=== PATIENT | female | born 2000 | race Two or more races ===

== ENCOUNTER 2024-03-02 13:56 | Outpatient (CLI) | payer OTHER | END 2024-03-02 13:57 | disposition home or self-care (01) | LOC: PRENATAL 13:56 | PROVIDERS: ATTEND Obstetrics & Gynecology Maternal & Fetal Medicine | DX: O35.9XX0 Maternal care for (suspected) fetal abnormality and damage, unspecified, not applicable or unspecified (principal); O35.3XX0 Maternal care for (suspected) damage to fetus from viral disease in mother, not applicable or unspecified; O44.02 Complete placenta previa NOS or without hemorrhage, second trimester; Z3A.19 19 weeks gestation of pregnancy ==

== ENCOUNTER 2024-05-28 08:43 | Outpatient (CLI) | payer OTHER ==
[2024-05-28 08:00] VITALS: BP 107/66
[2024-05-28] MEDS ORDERED: TERBUTALINE SULFATE 1 MG/ML AMPUL SUBCUTANEO ONE (09:00)
[2024-05-28] MEDS ORDERED: RINGERS SOLUTION,LACTATED 1,000 ML IV SCH (09:00)
[2024-05-28 09:21] LABS: URINE APPEARANCE Cloudy; URINE BILIRRUBIN Negative (NEGATIVE); URINE BLOOD Negative; URINE COLOR Yellow; URINE GLUCOSE Negative (NEGATIVE); URINE KETONE Negative (NEGATIVE); URINE LEUKOCYTE Negative; URINE NITRATE Negative; URINE PROTEIN Negative (NEGATIVE)
[2024-05-28 09:22] LABS: HEMATOCRIT 33.5 % (36.0-45.00); HEMOGLOBIN 11.8 g/dL (12.0-15.00); MEAN CELL VOLUME 92.3 fL (80.00-100.00); MEAN CORPUSCULAR HEMOGLOBIN 32.6 pg (27.00-32.0); MEAN CORPUSCULAR HGB CONC 35.3 g/dl (32.0-36.0); PLATELET COUNT 273 K/uL (150-450); RED BLOOD COUNT 3.63 M/uL (4.00-6.00); RED CELL DISTRIBUTION WIDTH 12.9 % (11.5-14.5)
[2024-05-28 09:29] LABS: URINE BACTERIA 522.8 uL (0.0-1933); URINE EPITHELIAL CELLS 14.1 uL (0.0-38.8); URINE WBC 9.7 uL (0.0-23.2)
[2024-05-28 09:38] LABS: URINE CAST 0.15 uL (0.0-1.40); URINE RBC 1.2 uL (0.0-20.8)
[2024-05-28 11:44] VITALS: BP 95/59; O2SAT 98
[2024-05-28 15:22] VITALS: BP 105/67
[2024-05-28 20:00] VITALS: BP 90/54
[2024-05-28 21:59] VITALS: BP 90/54
== END 2024-05-28 22:01 | disposition home or self-care (01) ==
LOC: OBS/DEL 08:43
PROVIDERS: ATTEND Obstetrics & Gynecology
DX: O26.893 Other specified pregnancy related conditions, third trimester (principal); Z3A.31 31 weeks gestation of pregnancy; O26.849 Uterine size-date discrepancy, unspecified trimester; O60.00 Preterm labor without delivery, unspecified trimester

== ENCOUNTER 2024-07-19 05:28 | Inpatient (IN) | payer OTHER ==
[~2024-07-19] VITALS: Ht 154.9 cm; Wt 2.7 kg
[2024-07-19 05:34] VITALS: BP 116/78
[2024-07-19] MEDS ORDERED: PRENATAL TABLE1 EAC1 PO (06:32)
[2024-07-19 06:55] LABS: HEMATOCRIT 37.8 % (36.0-45.00); HEMOGLOBIN 13.5 g/dL (12.0-15.00); MEAN CELL VOLUME 93.6 fL (80.00-100.00); MEAN CORPUSCULAR HEMOGLOBIN 33.3 pg (27.00-32.0); MEAN CORPUSCULAR HGB CONC 35.6 g/dl (32.0-36.0); PLATELET COUNT 253 K/uL (150-450); RED BLOOD COUNT 4.04 M/uL (4.00-6.00); RED CELL DISTRIBUTION WIDTH 14.4 % (11.5-14.5)
[2024-07-19 07:10] LABS: PH,URINE 6.5 (5.0-8.0); URINE APPEARANCE Clear; URINE BILIRRUBIN Negative (NEGATIVE); URINE BLOOD Negative; URINE COLOR Yellow; URINE GLUCOSE Negative (NEGATIVE); URINE LEUKOCYTE Small; URINE NITRATE Negative; URINE PROTEIN Negative (NEGATIVE)
[2024-07-19 07:14] LABS: URINE BACTERIA 2038.9 uL (0.0-1933); URINE EPITHELIAL CELLS 71.3 uL (0.0-38.8); URINE RBC 2.7 uL (0.0-20.8); URINE WBC 116.3 uL (0.0-23.2)
[2024-07-19 07:15] LABS: INR 0.96; PARTIAL THROMBOPLASTIN TIME 27.3 SECONDS (22.0-34.0); PROTHROMBIN TIME 10.5 SECONDS (9.0-11.5)
[2024-07-19 07:27] LABS: URINE CAST 0.58 uL (0.0-1.40); URINE KETONE 40 (NEGATIVE)
[2024-07-19 07:28] LABS: URINE CRYSTALS FEW /HPF
[2024-07-19 07:36] VITALS: BP 118/82
[2024-07-19] MEDS ORDERED: OXYTOCIN 20 UNITS/500ML RL PIGGYBAG IV ONE (10:19)
[2024-07-19] MEDS ORDERED: OXYTOCIN 20 UNITS/500ML RL PIGGYBAG IV SCH (10:30)
[2024-07-19] MEDS ORDERED: OXYTOCIN 500 ML IV SCH (10:45)
[2024-07-19] MEDS ORDERED: PROMETHAZINE HCL 25 MG/ML AMPUL ONE (10:48)
[2024-07-19] MEDS ORDERED: MEPERIDINE HCL/PF 50 MG/ML VIAL IV STA (10:57)
[2024-07-19] MEDS ORDERED: PROMETHAZINE HCL 25 MG/ML AMPUL IV STA (10:58)
[2024-07-19 11:55] VITALS: BP 115/76
[2024-07-19 15:30] VITALS: BP 115/68
[2024-07-19] MEDS ORDERED: OXYTOCIN 20 UNITS/1000ML RL PIGGYBAG IV ONE (15:42)
[2024-07-19] MEDS ORDERED: OXYTOCIN 10 UNITS/ML VIAL ONE ×2 (17:50→23:43)
[2024-07-19] MEDS ORDERED: ERYTHROMYCIN BASE OPHT 1GM EACH TUBE OP ONE (18:15)
[2024-07-19] MEDS ORDERED: OXYTOCIN 10 UNITS/ML VIAL IV ONE (18:15)
[2024-07-19] MEDS ORDERED: CEFAZOLIN SODIUM 1,000 MG VIAL ONE (18:41)
[2024-07-19] MEDS ORDERED: CEFAZOLIN SODIUM 1,000 MG VIAL IV ONE (20:30)
[2024-07-19] MEDS ORDERED: KETOROLAC TROMETHAMINE 60 MG VIAL IM STA (22:01)
[2024-07-19] MEDS ORDERED: CHLORHEXIDINE GLUCONATE 120 ML BOTTLE TP SCH (22:15)
[2024-07-19] MEDS ORDERED: RINGERS SOLUTION,LACTATED 1,000 ML IV SCH (22:15)
[2024-07-19] MEDS ORDERED: OXYTOCIN 1,000 ML IV SCH (22:15)
[2024-07-19] MEDS ORDERED: PROMETHAZINE HCL 25 MG/ML AMPUL IM PRN (22:15)
[2024-07-19] MEDS ORDERED: MEPERIDINE HCL/PF 50 MG/ML VIAL IM PRN (22:15)
[2024-07-20] MEDS ORDERED: KETOROLAC TROMETHAMINE 60 MG VIAL IM ONE (00:37)
[2024-07-20 00:40] LABS: HEMATOCRIT 32.4 % (36.0-45.00); MEAN CELL VOLUME 93.5 fL (80.00-100.00); MEAN CORPUSCULAR HGB CONC 35.3 g/dl (32.0-36.0); PLATELET COUNT 233 K/uL (150-450); RED BLOOD COUNT 3.46 M/uL (4.00-6.00); RED CELL DISTRIBUTION WIDTH 14.1 % (11.5-14.5)
[2024-07-20 00:41] LABS: HEMOGLOBIN 11.4 g/dL (12.0-15.00); MEAN CORPUSCULAR HEMOGLOBIN 32.9 pg (27.00-32.0)
[2024-07-20 01:29] VITALS: BP 108/62
[2024-07-20 08:05] VITALS: BP 103/65
[2024-07-20] MEDS ORDERED: OxyCODONE HCL/APAP UD (PERCOCET) PO PRN (09:00)
[2024-07-20 16:13] VITALS: BP 116/77
[2024-07-21 01:10] VITALS: BP 97/66
[2024-07-21 08:00] VITALS: BP 105/70
== END 2024-07-21 16:05 | disposition home or self-care (01) | DRG 788 ==
LOC: LDR 05:28 → OB/GYN 20:29
PROVIDERS: ADMIT Obstetrics & Gynecology; ATTEND Obstetrics & Gynecology
PROC: 4A1HXCZ Monitoring of Products of Conception, Cardiac Rate, External Approach (ICD-10-PCS; 2024-07-19)
PROC: 10D00Z1 Extraction of Products of Conception, Low, Open Approach (ICD-10-PCS; principal; 2024-07-19 17:00)
DX: O82 Encounter for cesarean delivery without indication (principal); O62.1 Secondary uterine inertia; O64.0XX0 Obstructed labor due to incomplete rotation of fetal head, not applicable or unspecified; Z3A.39 39 weeks gestation of pregnancy; Z37.0 Single live birth; Z20.822 Contact with and (suspected) exposure to COVID-19